=== PATIENT | male | born 1995 | race Caucasian/White ===

== ENCOUNTER 2017-10-02 06:53 | Emergency (ER) | payer BC ==
[~2017-10-02] VITALS: Ht 188 cm; Wt 81.6 kg
[~2017-10-02 06:53] MED LIST: ATIVAN1 MG PO; KEFLEX500 MG PO; MOTRIN600 MG PO; NAPROXEN500 MG PO; ZANTAC150 MG PO
[2017-10-02 07:25] LABS: APPEARANCE SL.HAZY ((CLEAR)); BILIRUBIN NEGATIVE; BLOOD SMALL; COLOR YELLOW ((YELLOW)); GLUCOSE (STRIP) NEGATIVE; KETONES 5; LEUKOCYTES NEGATIVE; NITRITE NEGATIVE; PROTEIN (STRIP) 30
[2017-10-02 07:28] LABS: BACTERIA NONE SEEN /HPF; EPITHELIAL CELLS NONE SEEN /HPF; MUCUS 1+ /LPF; RED BLOOD CELLS 0-5 /HPF (0-5); UCUL ADDED? NO; WHITE BLOOD CELLS 0-5 /HPF (0-5)
[2017-10-02 08:59] LABS: HEMOGLOBIN 15.7 G/DL (12.5-16.6); MCH 30.4 PG (29.0-34.0); MCHC 34.9 G/DL (30.0-36.0); PLATELET COUNT 195 K/uL (156-360); RBC DIS.WIDTH-CV 11.5 % (11.8-14.6); RBC DIS.WIDTH-SD 37.2 % (39-53); RED BLOOD COUNT 5.17 M/uL (4.00-5.50); WHITE BLOOD COUNT 5.8 K/uL (4.1-10.2)
[2017-10-02 09:08] LABS: ALBUMIN 4.3 g/dL (3.2-4.8); CHLORIDE 106 mEq/L (99-109)
[2017-10-02 09:09] LABS: POTASSIUM 3.7 mEq/L (3.7-5.4); SODIUM 139 mEq/L (136-147)
[2017-10-02 09:11] LABS: GLUCOSE 90 mg/dL (70-99); TOTAL PROTEIN 7.3 g/dL (6.4-8.3)
[2017-10-02 09:13] LABS: TOTAL BILIRUBIN 0.8 mg/dL (0.0-1.0)
[2017-10-02 09:14] LABS: ALKALINE PHOSPHATASE 47 IU/L (3-129); CREATININE 1.1 mg/dL (0.6-1.3); GFR ESTIMATE (CALCULATED) > 59 mL/min/ (58.99-99999)
[2017-10-02 09:16] LABS: AST (GOT) 12 IU/L (2-34); UREA NITROGEN (BUN) 12 mg/dL (9-23)
[2017-10-02 09:17] LABS: ALT (GPT) 10 IU/L (3-49)
[2017-10-02] MEDS ORDERED: CARAFATE1 GM PO (10:03)
[2017-10-02] MEDS ORDERED: ZOFRAN ODT4 MG PO (10:04)
[2017-10-02] MEDS ORDERED: PRILOSEC20 MG PO (10:04)
[2017-10-02 10:14] VITALS: BP 142/78
== END 2017-10-02 10:15 | disposition home or self-care (01) ==
LOC: EME 06:53
DX: K21.9 Gastro-esophageal reflux disease without esophagitis (principal); R11.0 Nausea; R19.7 Diarrhea, unspecified
CPT/HCPCS: 80053; 81003; 85027; 99281; 99284